=== PATIENT | female | born 1930 | race Caucasian/White ===

== ENCOUNTER → 2018-02-10 | Outpatient (CLI) | payer OTHER ==
[~2018-02-10] MED LIST: ASPI1TAB7 PO; BUTA1CAP PO; COZA50TA PO; LEVO50TA51 PO; LEVO75TA3 PO; LOSA50TA PO; METO25CR PO; METO25TA3 PO; SIMVPOW PO; TYLE3 PO; ZOFR4TAB PO
--- NOTE | 2018-02-11 10:29 | RSPPFT ---
DATE OF PROCEDURE: 02/10/18 COMMENTS: Spirometry shows FVC of 2.0 at 99% of predicted, FEV1 of 1.6 at 114%, FEV1/FVC ratio is normal. Flow is normal at FEF 25, FEF 50, FEF 75 and FEF 25-75. There is no response after bronchodilator treatment. Lung volumes show residual volume is normal. TLC is normal. Diffusion capacity is normal when corrected for lung volume. Flow volume loop indicates a normal pattern. IMPRESSION: 1. Normal spirometry. 2. No response after bronchodilator treatment. 3. Normal lung volumes. 4. Normal diffusion capacity.
== END ==
LOC: HRSP 12:04
PROVIDERS: ATTEND Internal Medicine
DX: J44.9 Chronic obstructive pulmonary disease, unspecified (principal)
CPT/HCPCS: 94060; 94726; 94729

== ENCOUNTER 2018-02-13 02:30 | Emergency (ER) | payer OTHER ==
[~2018-02-13] VITALS: Ht 149.9 cm; Wt 53.9 kg
[~2018-02-13 02:30] MED LIST changes: -BUTA1CAP PO; -LEVO75TA3 PO; -LOSA50TA PO; -METO25TA3 PO; -ZOFR4TAB PO
[2018-02-13 02:35] VITALS: BP 153/93; PULSE 81; RESP 18; TEMP 97.3; O2SAT 95
[2018-02-13] MEDS ORDERED: SODIUM CHLORIDE 0.9% FLUSH 10 ML FLUSH IV FLUSH PRN (03:15)
[2018-02-13] MEDS ORDERED: ONDANSETRON HCL 4 MG/2 ML VIAL IVP ONE (03:15)
[2018-02-13] MEDS ORDERED: SODIUM CHLOR 0.9% 1000 ML INJ 1,000 ML IV SCH (03:15)
[2018-02-13] MEDS ORDERED: LOSA50TA PO (03:19)
[2018-02-13] MEDS ORDERED: LEVO75TA3 PO (03:19)
[2018-02-13] MEDS ORDERED: METO25TA3 PO (03:19)
[2018-02-13 03:21] VITALS: RESP 16; O2SAT 97
--- NOTE | 2018-02-13 03:23 | PD ---
HPI Chief Complaint: GI Complaint Time Seen by Provider: 03:09 Travel History International Travel<30 days: No Contact w/Intl Traveler<30days: No Traveled to known affect area: No History of Present Illness HPI The patient is an 87-year-old female that states she has been feeling "bad" for a week. She started vomiting around midnight tonight, she states it was bile. She has had a headache for 3 days of gradual onset and states this is a migraine headache but this is getting better now on note is only a 5/10. She denies any significant abdominal pain. She denies any fever. PFSH Past Medical History Anxiety: Yes Depression: Yes Cancer: Yes (COLON POLYP, SKIN (NOSE)) Cardiovascular Problems: Yes (ARRHYTHMIA) Diabetes: No Diminished Hearing: No Hepatitis: No Hiatal Hernia: No Hypertension: Yes Medical other: Yes (ARTHRITIS) Thyroid Disease: Yes Tetanus Vaccination: > 5 Years Influenza Vaccination: Yes Menopausal: Yes Past Surgical History Abdominal Surgery: Yes (COLON POLYPECTOMY, CHOLECYSTECTOMY) Appendectomy: Yes Section: Yes (X2) Cholecystectomy: Yes (DOESN'T REMEMBER WHEN) Eye Surgery: Yes (LEFT EYE ) Gynecologic Surgery: Yes (TAHBSO, C SECTION X2) Hysterectomy: Yes Oral Surgery: Yes (T & A) Pacemaker: No Tonsillectomy: Yes Other Surgery: Yes (MALIGNANT POLY REMOVED FROM COLON-DEOSN'T REMEMBER WHEN) Social History Alcohol Use: Yes (1 DRINK PER MONTH) Tobacco Use: No Substance Use: No Allergies-Medications (Allergen,Severity, Reaction): Coded Allergies: nabumetone (Unverified Allergy, Severe, unknown, 06/18/17) Sulfa (Sulfonamide Antibiotics) (Unverified Allergy, Mild, 06/18/17) penicillin G (Unverified Allergy, Mild, HIVES, RASH, 06/18/17) adhesive (Unverified Adverse Reaction, Severe, RASH, 06/18/17) Reported Meds & Prescriptions Reported Meds & Active Scripts Active Reported Metoprolol Tartrate 25 Mg Tab 25 Mg PO BID Losartan (Losartan Potassium) 50 Mg Tab 50 Mg PO BID Levothyroxine (Levothyroxine Sodium) 75 Mcg Tab 75 Mcg PO DAILY Review of Systems Except as stated in HPI: all other systems reviewed are Neg Physical Exam Narrative GENERAL: The patient appears moderately dehydrated, alert, oriented 3 in slight apparent distress with her headache and nausea. Her vital signs show blood pressure 153/93 but otherwise normal. SKIN: Focused skin assessment warm/dry. No skin rash is present. HEAD: Atraumatic. Normocephalic. EYES: Pupils equal and round. No scleral icterus. No injection or drainage. ENT: No nasal bleeding or discharge. Mucous membranes pink and moist. NECK: Trachea midline. No JVD. CARDIOVASCULAR: Regular rate and rhythm. No murmur appreciated. RESPIRATORY: No accessory muscle use. Clear to auscultation. Breath sounds equal bilaterally. GASTROINTESTINAL: Abdomen soft, with slight tenderness in the left lower quadrant to direct palpation, nondistended. Hepatic and splenic margins not palpable. There are scars for cholecystectomy, hysterectomy and apparently an appendectomy was done to the cholecystectomy scar. No guarding or rebound is present. MUSCULOSKELETAL: No obvious deformities. No clubbing. No cyanosis. No edema. NEUROLOGICAL: Awake and alert. No obvious cranial nerve deficits. Motor grossly within normal limits. Normal speech. PSYCHIATRIC: Appropriate mood and affect; insight and judgment normal. Data Data Last Documented VS Vital Signs Date Time Temp Pulse Resp B/P (MAP) Pulse Ox O2 Delivery O2 Flow Rate FiO2 02/13/18 04:23 81 14 140/76 (97) 97 Room Air 02/13/18 02:35 97.3 Orders Orders Complete Blood Count With Diff (02/13/18 03:15) Comprehensive Metabolic Panel (02/13/18 03:15) Lipase (02/13/18 03:15) Urinalysis - C+S If Indicated (02/13/18 03:15) Ct Abd/Pel W Iv Contrast(Rout) (02/13/18 03:15) Iv Access Insert/Monitor (02/13/18 03:15) Ecg Monitoring (02/13/18 03:15) Oximetry (02/13/18 03:15) Ondansetron Inj (Zofran Inj) (02/13/18 03:15) Sodium Chlor 0.9% 1000 Ml Inj (Ns 1000 M (02/13/18 03:15) Sodium Chloride 0.9% Flush (Ns Flush) (02/13/18 03:15) Iohexol 350 Inj (Omnipaque 350 Inj) (02/13/18 04:17) Labs Laboratory Tests Test 02/13/18 03:22 White Blood Count 9.5 TH/MM3 Red Blood Count 5.02 MIL/MM3 Hemoglobin 15.4 GM/DL Hematocrit 46.0 % Mean Corpuscular Volume 91.6 FL Mean Corpuscular Hemoglobin 30.8 PG Mean Corpuscular Hemoglobin Concent 33.6 % Red Cell Distribution Width 13.1 % Platelet Count 329 TH/MM3 Mean Platelet Volume 8.6 FL Neutrophils (%) (Auto) 79.5 % Lymphocytes (%) (Auto) 13.4 % Monocytes (%) (Auto) 4.3 % Eosinophils (%) (Auto) 1.9 % Basophils (%) (Auto) 0.9 % Neutrophils # (Auto) 7.5 TH/MM3 Lymphocytes # (Auto) 1.3 TH/MM3 Monocytes # (Auto) 0.4 TH/MM3 Eosinophils # (Auto) 0.2 TH/MM3 Basophils # (Auto) 0.1 TH/MM3 CBC Comment AUTO DIFF Differential Total Cells Counted 100 Neutrophils % (Manual) 64 % Band Neutrophils % 16 % Lymphocytes % 15 % Monocytes % 5 % Neutrophils # (Manual) 7.6 TH/MM3 Differential Comment FINAL DIFF MANUAL Platelet Estimate NORMAL Platelet Morphology Comment NORMAL Red Cell Morphology Comment NORMAL Blood Urea Nitrogen 17 MG/DL Creatinine 0.89 MG/DL Random Glucose 124 MG/DL Total Protein 7.8 GM/DL Albumin 3.8 GM/DL Calcium Level 9.6 MG/DL Alkaline Phosphatase 100 U/L Aspartate Amino Transf (AST/SGOT) 30 U/L Alanine Aminotransferase (ALT/SGPT) 34 U/L Total Bilirubin 1.0 MG/DL Sodium Level 137 MEQ/L Potassium Level 3.4 MEQ/L Chloride Level 100 MEQ/L Carbon Dioxide Level 27.9 MEQ/L Anion Gap 9 MEQ/L Estimat Glomerular Filtration Rate 60 ML/MIN Lipase 230 U/L [facility] Medical Decision Making Medical Screen Exam Complete: Yes Emergency Medical Condition: Yes Medical Record Reviewed: Yes Interpretation(s) The CBC shows a hemoglobin of 15.4 but is otherwise unremarkable. The complete metabolic profile shows a GFR of 60 and potassium 3.4 but is otherwise normal. The lipase is normal. The CT abdomen and pelvis shows nonspecific hypodensities which are likely benign, no bowel obstruction and status post cholecystectomy. Differential Diagnosis Small bowel obstruction, dehydration, electrolyte disorder, pancreatitis, colitis, diverticulitis, intestinal abscess Narrative Course The patient was walking fairly comfortably back and forth to the restroom. Her pain is minimal at this time and she never requested anything for pain. The blood work is essentially normal. Her headache is minimal and she says Excedrin Migraine usually works for it. Impression: Gastritis, migraine headache Plan: The patient will increase liquid intake with Gatorade and is given Zofran for nausea. She will also get Fioricet for the migraine headache. Diagnosis Primary Impression: Migraine headache Additional Impression: Gastritis Med/Other Pt SpecificInfo: Prescription(s) given Scripts Uufrycvglx-Brzxhixlvkzmb-Zcmytlmo (Fioricet) 50-300-40 Mg Cap 1-2 CAP PO Q6H Y for HEADACHE, #20 CAP 0 Refills Prov: Dillon Hodge MD 02/13/18 Ondansetron (Zofran) 4 Mg Tab 4 MG PO Q6HR Y for NAUSEA OR VOMITING, #20 TAB 0 Refills Prov: Dillon Hodge MD 02/13/18 Disposition: 01 DISCHARGE HOME Condition: Stable Dillon Hodge MD Feb 13, 2018 03:23
[2018-02-13 03:29] LABS: AUTOMATED NEUTROPHIL # 7.5 TH/MM3 (1.8-7.7); BASOPHIL # 0.1 TH/MM3 (0-0.2); BASOPHIL % 0.9 % (0.0-2.0); EOSINOPHIL # 0.2 TH/MM3 (0-0.4); EOSINOPHIL % 1.9 % (0.0-4.0); HEMOGLOBIN 15.4 GM/DL (11.6-15.3); LYMPH % 13.4 % (9.0-44.0); LYMPHOCYTE # 1.3 TH/MM3 (1.0-4.8); MEAN CELL VOLUME 91.6 FL (80.0-100.0); MEAN CORPUSCULAR HEMOGLOBIN 30.8 PG (27.0-34.0); MEAN CORPUSCULAR HGB CONC 33.6 % (32.0-36.0); MEAN PLATELET VOLUME 8.6 FL (7.0-11.0); MONO % 4.3 % (0.0-8.0); MONOCYTE # 0.4 TH/MM3 (0-0.9); NEUT % 79.5 % (16.0-70.0); PLATELET COUNT 329 TH/MM3 (150-450); RED BLOOD COUNT 5.02 MIL/MM3 (4.00-5.30); RED CELL DISTRIBUTION WIDTH 13.1 % (11.6-17.2); WHITE BLOOD COUNT 9.5 TH/MM3 (4.0-11.0)
[2018-02-13 03:37] LABS: CHLORIDE 100 MEQ/L (98-107); SODIUM (NA) 137 MEQ/L (136-145)
[2018-02-13 03:40] LABS: ALBUMIN 3.8 GM/DL (3.4-5.0); BICARBONATE 27.9 MEQ/L (21.0-32.0); CALCIUM 9.6 MG/DL (8.5-10.1)
[2018-02-13 03:41] LABS: BLOOD UREA NITROGEN 17 MG/DL (7-18); GLUCOSE,RANDOM 124 MG/DL (74-106)
[2018-02-13 03:43] LABS: ALT (GPT) 34 U/L (10-53); AST (GOT) 30 U/L (15-37)
[2018-02-13 03:44] LABS: CREATININE 0.89 MG/DL (0.50-1.00); GLOMERULAR FILTRATION RATE 60 ML/MIN (>89)
[2018-02-13 03:45] LABS: TOTAL PROTEIN 7.8 GM/DL (6.4-8.2)
[2018-02-13 03:46] LABS: ALKALINE PHOSPHATASE 100 U/L (45-117)
[2018-02-13 03:48] LABS: BANDS 16 % (0-6); LYMPHOCYTES 15 % (9-44); MONOCYTES 5 % (0-8); NEUTROPHIL # MANUAL DIFF 7.6 TH/MM3 (1.8-7.7); POLYS (SEG NEUTROPHILS) 64 % (16-70)
[2018-02-13] MEDS ORDERED: IOHEXOL 350 MG/ML 10 ML VIAL (for RAD DIAG) IVCONTRAST ONE (04:17)
[2018-02-13 04:23] VITALS: BP 140/76; PULSE 81; RESP 14; O2SAT 97
--- NOTE | 2018-02-13 04:45 | RADRPT ---
EXAM DATE/TIME: 02/13/2018 04:01 [facility] COMPARISON: No previous studies available for comparison. INDICATIONS : Abdominal pain. Vomiting. IV CONTRAST: 100 cc Omnipaque 350 (iohexol) IV ORAL CONTRAST: No oral contrast ingested. RADIATION DOSE: 6.20 CTDIvol (mGy) MEDICAL HISTORY : Hypertension. SURGICAL HISTORY : Appendectomy. Cholecystectomy. section.Hysterectomy. ENCOUNTER: Initial ACUITY: 1 day PAIN SCALE: 5/10 LOCATION: abdomen TECHNIQUE: Volumetric scanning of the abdomen and pelvis was performed. Using automated exposure control and ad justment of the mA and/or kV according to patient size, radiation dose was kept as low as reasonably achievable to obtain optimal diagnostic quality images. DICOM format image data is available electro nically for review and comparison. FINDINGS: LOWER LUNGS: The visualized lower lungs are clear. LIVER: Homogeneous density without lesion. There is mild dilation of the biliary tree. Cholecystectomy. Se veral low densities. SPLEEN: Normal size without lesion. PANCREAS: Within normal limits. KIDNEYS: Normal in size and shape. There is no mass, stone or hydronephrosis. ADRENAL GLANDS: Within normal limits. VASCULAR: There is no aortic aneurysm. BOWEL/MESENTERY: The stomach, small bowel, and colon demonstrate no acute abnormality. There is no free intraperitone al air or fluid. ABDOMINAL WALL: Within normal limits. RETROPERITONEUM: There is no lymphadenopathy. BLADDER: No wall thickening or mass. REPRODUCTIVE: Within normal limits. INGUINAL: There is no lymphadenopathy or hernia. MUSCULOSKELETAL: Within normal limits for patient age. CONCLUSION: 1. Nonspecific hypodensities, likely benign. 2. No bowel obstruction. 3. Status post cholecystectomy. Kiet Narvaez MD on February 13, 2018 at 4:42 Board Certified Radiologist. This report was verified electronically.
[2018-02-13 04:55] LABS: BILIRUBIN, URINE NEG (NEG); BLOOD, URINE NEG (NEG); GLUCOSE,URINE NEG (NEG); KETONE, URINE NEG (NEG); NITRITE,URINE NEG (NEG); PH, URINE 6.5 (5.0-8.5); URINE COLOR YELLOW (YELLW/STRAW); URINE LEUKOCYTE ESTERASE NEG (NEG)
[2018-02-13] MEDS ORDERED: ZOFR4TAB PO (04:58)
[2018-02-13] MEDS ORDERED: BUTA1CAP PO (04:58)
[2018-02-13 05:07] LABS: RBC, URINE 0-2 /hpf (0-3); SQUAMOUS EPITHELIAL CELL URINE 0-5 /hpf (0-5); WBC, URINE 0-2 /hpf (0-5)
== END 2018-02-13 05:27 | disposition home or self-care (01) ==
LOC: PHED 02:30
DX: G43.909 Migraine, unspecified, not intractable, without status migrainosus (principal); K29.70 Gastritis, unspecified, without bleeding; F41.9 Anxiety disorder, unspecified; F32.9 Major depressive disorder, single episode, unspecified; I10 Essential (primary) hypertension; M19.90 Unspecified osteoarthritis, unspecified site; Z85.828 Personal history of other malignant neoplasm of skin
CPT/HCPCS: 74177; 80053; 81001; 83690; 85007; 85027; 96361; 96374; 99284; J2405; J7030; Q9967